=== PATIENT | male | born 1980 | race Caucasian/White ===

== ENCOUNTER → 2016-11-28 | Outpatient (CLI) | payer OTHER ==
[2016-11-28 11:05] LABS: HEMOGLOBIN 17.1 g/dL (13.7-18.0)
[2016-11-28 12:05] LABS: ASPARTATE AMINO TRANSFERASE 32 U/L (15-37); BLOOD UREA NITROGEN 18 mg/dL (7-18)
[2016-11-30 09:07] LABS: TESTOSTERONE FREE DIRECT 14.8 pg/mL (8.7-25.1); TESTOSTERONE TOTAL 427 ng/dL (348-1197)
== END | disposition home or self-care (01) ==
LOC: LAB 10:50
PROVIDERS: ATTEND Family Medicine
DX: Z00.01 Encounter for general adult medical examination with abnormal findings (principal)
CPT/HCPCS: 36415; 80053; 80061; 82306; 84270; 84402; 84403; 84443; 85025